=== PATIENT | male | born 1995 | race Caucasian/White ===

== ENCOUNTER 2020-05-15 18:20 | Emergency (ER) | payer OTHER, BC ==
[2020-05-15] MEDS ORDERED: Bacitracin Oint 1 GM U/D Packet TOP ONE (19:32)
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
[2020-05-15 21:07] LABS: ANION GAP 13.1 mEq/L (7-13); CHLORIDE,CL 104 mmol/L (98-107); SODIUM,NA 141 mmol/L (136-145)
== END 2020-05-15 20:35 | disposition home or self-care (01) ==
LOC: DL.ED 18:20
DX: S80.812A Abrasion, left lower leg, initial encounter (principal); S60.311A Abrasion of right thumb, initial encounter; S60.412A Abrasion of right middle finger, initial encounter; Z88.0 Allergy status to penicillin; Z88.1 Allergy status to other antibiotic agents; V48.1XXA Car passenger injured in noncollision transport accident in nontraffic accident, initial encounter
CPT/HCPCS: 36415; 80053; 85025; 99284